=== PATIENT | female | born 1985 ===

== ENCOUNTER 2024-11-23 07:07 | Day surgery (SDC) | payer OTHER ==
[2024-11-15 13:04] VITALS: BP 109/72
[~2024-11-23] VITALS: Ht 167.6 cm; Wt 77.1 kg
[~2024-11-23 07:07] MED LIST: CELEBREX200MG PO; ENBREL50 MG/1 ML SUBCUTANEO; TREXALL5 MG PO
[2024-11-23] MEDS ORDERED: CEFAZOLIN SODIUM 1,000 MG VIAL ONE (11:24)
== END 2024-11-23 19:45 | disposition home or self-care (01) ==
LOC: CIR.AMB 07:07
PROVIDERS: ATTEND Orthopaedic Surgery Hand Surgery
DX: M19.022 Primary osteoarthritis, left elbow (principal); M05.79 Rheumatoid arthritis with rheumatoid factor of multiple sites without organ or systems involvement
CPT/HCPCS: 24363; L8699

== ENCOUNTER 2025-02-01 09:00 | Day surgery (SDC) | payer OTHER ==
[2025-01-31 08:50] VITALS: BP 122/83
[~2025-02-01] VITALS: Ht 167.6 cm; Wt 77.1 kg
[2025-02-01] MEDS ORDERED: TRIAMCINOLONE ACETONIDE 40 MG/ML VIAL IJ ONE (11:15)
[2025-02-01] MEDS ORDERED: LIDOCAINE HCL 1% 10ML VIAL IJ ONE (11:15)
[2025-02-01] MEDS ORDERED: MORPHINE SULFATE 4 MG/ML VIAL IV ONE (11:40)
[2025-02-01] MEDS ORDERED: CEFAZOLIN SODIUM 1,000 MG VIAL IV ONE (12:00)
== END 2025-02-01 13:40 | disposition home or self-care (01) ==
LOC: CIR.AMB 09:00
PROVIDERS: ATTEND Orthopaedic Surgery Hand Surgery
DX: M24.522 Contracture, left elbow (principal); M19.2 Secondary osteoarthritis of other joints; M05.79 Rheumatoid arthritis with rheumatoid factor of multiple sites without organ or systems involvement